=== PATIENT | female | born 1940 | race Caucasian/White ===

== ENCOUNTER → 2017-09-07 | Outpatient (CLI) | payer MEDICARE, OTHER | END | disposition home or self-care (01) | LOC: CFH 09:24 | PROVIDERS: ATTEND Physician Assistant Medical | DX: Z12.31 Encounter for screening mammogram for malignant neoplasm of breast (principal); Z80.3 Family history of malignant neoplasm of breast | CPT/HCPCS: 77063; 77067 ==

== ENCOUNTER 2018-01-09 11:09 | Outpatient (CLI) | payer OTHER ==
[2018-01-09] MEDS ORDERED: OMEP-110 PO (11:32)
[2018-01-09] MEDS ORDERED: LOVA40TA2 PO (11:32)
[2018-01-09] MEDS ORDERED: ATEN50TA41 PO (11:32)
== END 2018-01-16 09:38 | disposition home or self-care (01) ==
LOC: STAR 11:09
PROVIDERS: ATTEND Surgery Vascular Surgery
DX: Z02.9 Encounter for administrative examinations, unspecified (principal)

== ENCOUNTER 2018-01-25 10:55 | Day surgery (SDC) | payer OTHER ==
[~2018-01-25] VITALS: Ht 160 cm; Wt 72.8 kg
[~2018-01-25 10:55] MED LIST: ATEN50TA41 PO; LOVA40TA2 PO; OMEP-110 PO
[2018-01-25 11:47] VITALS: BP 128/84
[2018-01-25 12:14] LABS: BASOPHILS % (AUTO) 1 % (0-1); EOSINOPHILS # (AUTO) 0.71 x10^3/uL (0-0.4); EOSINOPHILS % (AUTO) 9 % (1-7); LYMPHOCYTES # (AUTO) 2.56 x10^3/uL (1-3.4); LYMPHOCYTES % (AUTO) 32 % (22-44); MD NO; MEAN CORPUSCULAR HEMOGLOBIN 29.6 pg (27.0-34.8); MEAN CORPUSCULAR HGB CONC 33.5 g/dL (32.4-35.8); MEAN CORPUSCULAR VOLUME 88.4 fL (80-100); MEAN PLATELET VOLUME 8.6 fL (7.4-10.4); MONOCYTES # (AUTO) 0.75 x10^3/uL (0.2-0.8); MONOCYTES % (AUTO) 10 % (2-9); NEUTROPHILS % (AUTO) 48 % (42-75); PLATELET COUNT 233 x10^3/uL (130-400); RED CELL DISTRIBUTION WIDTH 13.8 % (9.6-15.2)
[2018-01-25 12:23] LABS: ANION GAP 5 mmol/L (5-15); CALCIUM 9.2 mg/dL (8.5-10.1); CHLORIDE 112 mmol/L (98-107); CREATININE 0.98 mg/dL (0.55-1.02)
[2018-01-25] MEDS ORDERED: MIDAZOLAM 1 MG/ML, 5ML ONE (12:36)
[2018-01-25] MEDS ORDERED: FENTANYL PF 100 MCG/2ML ONE (12:36)
[2018-01-25] MEDS ORDERED: FLUMAZENIL 0.1 MG/1 ML, 5ML ONE (12:36)
[2018-01-25] MEDS ORDERED: HEPARIN 1,000 UNITS/ML, 10ML ONE (12:37)
[2018-01-25] MEDS ORDERED: PROTAMINE SULFATE 10 MG/ML, 25ML ONE (12:37)
[2018-01-25] MEDS ORDERED: NALOXONE 1 MG/ML, 2ML ONE (12:37)
[2018-01-25] MEDS ORDERED: NITROGLYCERIN 5 MG/ML, 10ML ONE (12:37)
[2018-01-25] MEDS ORDERED: LIDOCAINE-MPF 1%, 5ML ONE (12:39)
[2018-01-25] MEDS ORDERED: VISIPAQUE 270 MG/ML, 150ML BOTTLE ONE (14:11)
[2018-01-25] MEDS ORDERED: CLOPIDOGREL 300 MG TABLET ONE (14:25)
== END 2018-01-25 17:05 | disposition home or self-care (01) ==
LOC: RAD 10:55
PROVIDERS: ATTEND Surgery Vascular Surgery
DX: I70.222 Atherosclerosis of native arteries of extremities with rest pain, left leg (principal); I10 Essential (primary) hypertension; J44.9 Chronic obstructive pulmonary disease, unspecified; Z87.891 Personal history of nicotine dependence; Z98.890 Other specified postprocedural states
CPT/HCPCS: 36415; 37226; 75625; 75716; 76937; 80048; 85025; 99156; 99157; C1725; C1760; C1769; C1876; C1894; J1644; J2250; J2720; J3010; Q9966; 75630; J2310

== ENCOUNTER 2019-01-14 06:39 | Day surgery (SDC) | payer MEDICARE ==
[~2019-01-14] VITALS: Ht 160 cm; Wt 66.7 kg
[2019-01-14] MEDS ORDERED: SODIUM CHLORIDE 0.9% 1,000 ML IV SCH (07:04)
[2019-01-14 07:36] VITALS: BP 126/83
[2019-01-14] MEDS ORDERED: ASPI-496 PO (07:44)
[2019-01-14] MEDS ORDERED: CLOP75TA PO (07:44)
[2019-01-14] MEDS ORDERED: RANI150C PO (07:44)
[2019-01-14] MEDS ORDERED: FENTANYL PF 100 MCG/2ML ONE (08:31)
[2019-01-14] MEDS ORDERED: MIDAZOLAM 1 MG/ML, 5ML ONE (08:32)
[2019-01-14] MEDS ORDERED: NALOXONE 1 MG/ML, 2ML ONE (08:32)
[2019-01-14] MEDS ORDERED: FLUMAZENIL 0.1 MG/1 ML, 5ML ONE (08:32)
[2019-01-18] MEDS ORDERED: ATOR-2 PO (17:46)
[2019-01-25] MEDS ORDERED: NICO-485 TD (08:47)
== END 2019-01-14 11:00 | disposition home or self-care (01) ==
LOC: OUT 06:39
PROVIDERS: ATTEND Surgery
DX: R22.0 Localized swelling, mass and lump, head (principal); C49.0 Malignant neoplasm of connective and soft tissue of head, face and neck; I10 Essential (primary) hypertension; J44.9 Chronic obstructive pulmonary disease, unspecified; E78.5 Hyperlipidemia, unspecified; K21.9 Gastro-esophageal reflux disease without esophagitis; F17.210 Nicotine dependence, cigarettes, uncomplicated; Z79.82 Long term (current) use of aspirin; Z79.899 Other long term (current) drug therapy
CPT/HCPCS: 20206; 77012; 88305; 88341; 88342; 99156; 99157; J2250; J3010; J7030; J2310